=== PATIENT | female | born 1955 | race Two or more races ===

== ENCOUNTER 2017-05-24 16:46 | Emergency (ER) | payer MEDICAID, OTHER ==
[~2017-05-24] VITALS: Ht 162.6 cm; Wt 86.2 kg
[2017-05-24 16:49] VITALS: BP 134/77
== END 2017-05-24 17:12 | disposition home or self-care (01) ==
LOC: ER 16:48
DX: L02.411 Cutaneous abscess of right axilla (principal); I10 Essential (primary) hypertension

== ENCOUNTER 2019-06-25 15:57 | Emergency (ER) | payer MEDICARE, MEDICAID ==
[~2019-06-25] VITALS: Ht 160 cm; Wt 87.1 kg
--- NOTE | 2019-06-25 16:20 | NUR ---
PT AAOX4. AMBULATORY. BIBFAMILY C/O R HAND PAIN X 3 DAYS, CONCERN ABOUT FORIEGN BODY WHILE GARDENING. PLACED IN BED 14. VSS.
--- NOTE | 2019-06-25 17:02 | NUR ---
XRAY AT BEDSIDE
[2019-06-25 18:01] VITALS: BP 128/68
--- NOTE | 2019-06-25 18:01 | NUR ---
Patient discharged to home in stable condition. Written and verbal after care instructions given. Patient verbalizes understanding of instruction. Ambulated with steady gait.
== END 2019-06-25 18:02 | disposition home or self-care (01) ==
LOC: ER 16:03
DX: L98.9 Disorder of the skin and subcutaneous tissue, unspecified (principal); M79.641 Pain in right hand; I10 Essential (primary) hypertension
CPT/HCPCS: 73130-TC